=== PATIENT | female | born 1960 ===

== ENCOUNTER 2017-08-03 01:21 | Inpatient (IN) | payer BC ==
[2017-08-03] MEDS ORDERED: NS 0.9% 1000 ML*IV.FLUID IV ONE (01:51)
[2017-08-03] MEDS ORDERED: fentaNYL* 50 MCG/ML 2 ML VIAL (100 MCG VIAL) IV SLOW PU ONE (01:52)
[2017-08-03] MEDS ORDERED: Metoclopramide IV* 5 MG/ML 2 ML VIAL IV SLOW PU ONE (01:52)
[2017-08-03] MEDS ORDERED: Acetaminophen TAB* 325 MG PO ONE (01:53)
[2017-08-03] MEDS ORDERED: Levofloxacin 500 MG IVPREMIX(* 500 MG/100 ML BAG IVPB ONE (01:53)
[2017-08-03] MEDS ORDERED: Vancomycin(*) 1,000 MG in NS 0.9% 250 ML* 250 ML IVPB ONE (01:53)
[2017-08-03] MEDS ORDERED: NS 0.9% 1000 ML* 1,000 ML IV ONE (01:53)
[2017-08-03 02:18] LABS: ABS Basophils 0 10^3/ul (0-0.2); ABS Eosinophils 0 10^3/ul (0-0.6); ABS Lymphocytes 1.2 10^3/ul (1.0-4.8); ABS Monocytes 0.1 10^3/ul (0-0.8); ABS Nucleated RBC 0 10^3/ul; Eosinophil % 0 % (0-6); Hematocrit 34 % (35-47); Hemoglobin 11.5 g/dl (12.0-16.0); Lymphocyte % 9.2 % (25-47); Mean Corpuscular HGB Conc 34 g/dl (31-36); Mean Corpuscular Hemoglobin 32 pg (27-31); Mean Corpuscular Volume 93 fL (80-97); Mean Platelet Volume 7.5 um3 (7.4-10.4); Nucleated Red Blood Cells % 0; Platelet Count 271 10^3/ul (150-450); Red Blood Count 3.65 10^6/ul (4.0-5.4); Red Cell Distribution Width 13 % (10.5-15); White Blood Count 13.4 10^3/ul (3.5-10.8)
[2017-08-03 02:27] LABS: INR 1.04 (0.77-1.02)
[2017-08-03 02:37] LABS: EGFR Non-African American 35.1 (>60)
[2017-08-03 03:07] LABS: Urine Appearance Cloudy; Urine Blood 1+ (Negative); Urine Color Yellow; Urine Ketones Negative (Negative); Urine Protein 1+(30 mg/dL) (Negative); Urine Specific Gravity 1.025 (1.010-1.030); Urine Urobilinogen Negative (Negative)
[2017-08-03] MEDS ORDERED: Ondansetron ODT TAB* 4 MG PO ONE (03:20)
[2017-08-03] MEDS ORDERED: Ondansetron INJ* 2 MG/ML VIAL IV ONE (03:23)
[2017-08-03] MEDS ORDERED: Ondansetron INJ* 2 MG/ML VIAL ONE (03:25)
--- NOTE | 2017-08-03 03:30 | ED ---
Katleynn Jackson Thomas, scribed for Winter Sheriff MD on 08/03/17 at 0155 . Abdominal Pain/Female - HPI Summary HPI Summary: The patient is a 57 year old female who was diagnosed with a kidney stone yesterday and seen by Dr. Sheffield as well. She had a sonogram performed yesterday , that shows a stone on the left side close to the kidney. She is scheduled to have a stent placed this morning by Dr. Sheffield. Today, she comes in to the emergency department with worsening left flank pain, vomiting, and chills. - History of Current Complaint Chief Complaint: EDFlankPain Stated Complaint: FLANK PAIN Time Seen by Provider: 08/03/17 01:42 Hx Obtained From: Patient Onset/Duration: Lasting Hours, Still Present Timing: Constant Severity Currently: Severe Pain Intensity: 8 Pain Scale Used: 0-10 Numeric Location: Flank - left Alleviating Factor(s): Nothing Associated Signs and Symptoms: Positive: Vomiting, Other: - Chills Allergies/Adverse Reactions: Allergies Allergy/AdvReac Type Severity Reaction Status Date / Time codeine Allergy Unknown Verified 08/03/17 01:26 Reaction Details Home Medications: Home Medications NK [No Home Medications Reported] 08/03/17 [History Confirmed 08/03/17] PMH/Surg Hx/FS Hx/Imm Hx History: Reports: Hx Kidney Stones Opthamlomology History: Denies: Hx Legally Blind Infectious Disease History: No Infectious Disease History: Denies: Traveled Outside the [place] in Last 30 Days - Family History Known Family History: Negative: Seizure Disorder - Social History Alcohol Use: Occasionally Substance Use Type: Reports: None Smoking Status (MU): Current Some Day Smoker Review of Systems Positive: Fever, Chills Positive: Vomiting Positive: flank pain - left All Other Systems Reviewed And Are Negative: Yes Physical Exam - Summary Physical Exam Summary: VITAL SIGNS: Reviewed. GENERAL: Patient is a well-developed and nourished female who is lying comfortable in the stretcher. Patient is not in any acute respiratory distress. HEAD AND FACE: No signs of trauma. No ecchymosis, hematomas or skull depressions. No sinus tenderness. EYES: PERRLA, EOMI x 2, No injected conjunctiva, no nystagmus. EARS: Hearing grossly intact. Ear canals and tympanic membranes are within normal limits. MOUTH: Oropharynx within normal limits. NECK: Supple, trachea is midline, no adenopathy, no JVD, no carotid bruit, no c- spine tenderness, neck with full ROM. CHEST: Symmetric, no tenderness at palpation LUNGS: Clear to auscultation bilaterally. No wheezing or crackles. CVS: Regular rate and rhythm, S1 and S2 present, no murmurs or gallops appreciated. ABDOMEN: Soft, non-tender. No signs of distention. No rebound no guarding, and no masses palpated. Bowel sounds are normal. BACK: She has left CVA tenderness. EXTREMITIES: FROM in all major joints, no edema, no cyanosis or clubbing. NEURO: Alert and oriented x 3. No acute neurological deficits. Speech is normal and follows commands. SKIN: Dry and warm Triage Information Reviewed: Yes Vital Signs On Initial Exam: Initial Vitals Temp Pulse Resp BP Pulse Ox 99.7 F 117 22 112/70 92 08/03/17 01:23 08/03/17 01:23 08/03/17 01:23 08/03/17 01:23 08/03/17 01:23 Vital Signs Reviewed: Yes Diagnostics - Vital Signs Vital Signs Temp Pulse Resp BP Pulse Ox 08/03/17 01:23 99.7 F 117 22 112/70 92 - Laboratory Result Diagrams: 08/03/17 02:07 08/03/17 02:07 Lab Statement: Any lab studies that have been ordered have been reviewed, and results considered in the medical decision making process. Abdominal Pain Fem Course/Dx - Course Course Of Treatment: The patient is a 57 year old female who was diagnosed with a kidney stone yesterday. She is scheduled to have a stent placed this morning by Dr. Sheffield. Today, she comes in to the emergency department with worsening left flank pain, vomiting, and chills. In the ED course, the patient was given acetaminophen, fentanyl, Levaquin, Reglan, IV fluids, and vancomycin. Bloodwork and urinalysis were obtained. I reviewed the patients labs and vital signs with Dr. Sheffield. He recommends admission to the hospitalists, and he will do the surgery in the morning. The patient is admitted to Dr. Lua. ADDITIONAL DIAGNOSIS: Urosepsis. - Diagnoses Provider Diagnoses: Left ureteral stone, Obstructive uropathy - Provider Notifications Discussed Care Of Patient With: Hugh Sheffield Time Discussed With Above Provider: 03:19 Instructed by Provider To: Other - I discussed the case with Dr. Sheffield, urology. We reviewed the labs and vital signs. He recommends admission to the hospitalists. He will do the surgery as planned in the morning. Dr. Lua will admit the patient at 03:30. Discharge - Sign-Out/Discharge Documenting (check all that apply): Discharge/Admit/Transfer - Discharge Plan Condition: Fair Disposition: ADMITTED TO [facility] Referrals: No Primary Care Phys,NOPCP [Primary Care Provider] - The documentation as recorded by the Katelynn enriquez Thomas accurately reflects the service I personally performed and the decisions made by me, Winter Sheriff MD.
[2017-08-03] MEDS ORDERED: Ondansetron INJ* 2 MG/ML VIAL IV PRN (04:07)
[2017-08-03] MEDS ORDERED: PROCHLORPERAZINE INJ 5 MG/ML 2 ML VIAL IV PRN (04:07)
[2017-08-03] MEDS ORDERED: Morphine VIAL* 4 MG/ML VIAL (1 ml vial) IV PRN (04:10)
[2017-08-03] MEDS ORDERED: NS 0.9% 1000 ML* 1,000 ML IV SCH ×2 (04:15→13:31)
[2017-08-03] MEDS ORDERED: Gentamicin ADULT (*) 160 MG in NS 0.9% 100 ML* 100 ML IVPB ONE (10:00)
--- NOTE | 2017-08-03 10:52 | HP ---
CC: Eloisa Andrade NP; Dr. Sheffield * HISTORY AND PHYSICAL: DATE OF ADMISSION: 08/03/17 PRIMARY CARE PROVIDER: Eloisa Andrade NP CHIEF COMPLAINT: Left flank pain. HISTORY OF PRESENT ILLNESS: Ms. Latif is 57-year-old female, who at approximately 9:30 a.m. on 08/02/17 developed sudden onset of severe left flank pain. The patient went to [facility], where she was identified to have a left ureteral stone. The patient was referred to Dr. Sheffield's office. The patient saw Dr. Sheffield yesterday and was scheduled to have a left ureteral stent placed on the morning of 08/03/17. The patient received an IM injection of antibiotic at Dr. Sheffield's office. She is not 100% sure what it is, but questions maybe it is gentamicin. She was also prescribed Percocet and Cipro. The patient states she did not take the Cipro as she went right to bed after getting home. She did take 1 dose of the Percocet. The patient overnight developed fever and shaking chills. She continued to have intermittent episodes of nausea and vomiting. When the patient presented to the emergency room, she was found to have a fever of 101.8. The patient denies any gross blood in the urine and she denies dysuria. She has never had a kidney stone in the past. PAST MEDICAL HISTORY: None. PAST SURGICAL HISTORY: Right knee surgery at age of 14. MEDICATIONS: 1. Cipro (has not taken any). 2. Percocet 5/325 one tab p.o. q.6 hours p.r.n. pain. ALLERGIES: CODEINE, which causes loss of consciousness. FAMILY HISTORY: Mom at the age of 83 from bladder cancer. Dad at the age 75 of an [place]. SOCIAL HISTORY: The patient smokes on occasion. She drinks alcohol occasionally. She works in the [employer]. She is . She has 1 child. Her is her healthcare proxy. REVIEW OF SYSTEMS: A complete 11-system review of systems is obtained. Pertinent positives and negatives are as per HPI and in addition, she states her appetite has been poor over the last 24 hours. The rest of review of systems is negative. PHYSICAL EXAMINATION GENERAL: The patient is a well-developed, middle-aged female seen lying in stretcher, in no acute distress. VITAL SIGNS: Blood pressure 106/67; pulse 86; respirations 20; temp 99.9, T- max 101.3. HEENT: Pupils are equal and round. Extraocular muscles are intact. Oropharynx is clear. Oral mucosa is moist. The patient wears upper dentures. Has natural teeth on the bottom. NECK: There is no submandibular, cervical, or supraclavicular adenopathy. Thyroid is not enlarged. No thyroid nodules are noted. PULMONARY: Lungs are clear to auscultation bilaterally. CARDIAC: Normal S1 and S2. Regular rate and rhythm. I do not appreciate any murmur. There is no lower extremity edema. ABDOMEN: Bowel sounds are present. Abdomen is soft, nontender, nondistended. MUSCULOSKELETAL: There is no cyanosis or clubbing of the digits. There is full active range of motion of all 4 extremities. NEURO: Cranial nerves II through XII are grossly intact. Sensation is intact to light touch throughout. Strength is 5/5 and symmetric in both upper and lower extremities bilaterally. PSYCH: The patient is alert. She is oriented x3. Affect appears appropriate. SKIN: Warm and dry. There are no rashes. DIAGNOSTIC STUDIES/LAB DATA: WBC 13.4, hemoglobin 11.5, hematocrit 34, platelets 271. INR of 1.04. Sodium 140, potassium 3.9, chloride 104, CO2 of 25 , BUN 28, creatinine 1.53, glucose 122, lactic acid 2.3, calcium 8.8. Bilirubin 0.8, AST 19, ALT 17, alk phos 67. CRP 51.88. Albumin 4.0. Urinalysis reveals specific gravity of 1.025, 1+ protein, 1+ blood, 3+ leukocyte esterase, 3+ wbc's, 3+ rbc's, absent bacteria. ASSESSMENT AND PLAN: Ms. Latif is a 57-year-old female with no significant past medical history, who presents to the emergency room after developing fever and shaking chills at home on the evening after the identification of a left ureteral stone. 1. Sepsis secondary to probable pyelonephritis. The patient is septic based on sepsis 2 criteria with leukocytosis and fever. Her lactic acid is mildly elevated. The patient received 30 mL/kg bolus of saline. She has received Levaquin and vancomycin in the emergency room. I will continue the patient on ceftriaxone alone starting tomorrow morning. The patient will be taken later this morning to the OR with Dr. Sheffield to have a stent placed. I suspect the patient will need to stay in the hospital overnight to ensure that she remains stable once the stent is placed. 2. Left ureteral stone. The plan is for the patient to go to the OR this morning at approximately 9 a.m. If she decompensates in terms of her vital signs, Dr. Sheffield states he would take her sooner to the operating room. 3. Anemia. The patient is mildly anemic. We have no prior labs to compare to. We will need to follow this closely. 4. Elevated creatinine. The patient's creatinine is elevated at 1.53. We do not have any previous labs to compare to. I am suspicious that the elevated creatinine may be related to the obstruction caused by the left ureteral stone. We will follow the creatinine after hydration and stent placement. 5. DVT prophylaxis. According to the Adult Thrombosis Prophylaxis Risk Factor Assessment Guide, the patient has a total risk factor score of 1, making her low risk, SCDs will be utilized as DVT prophylaxis. 6. Code status is full. TIME SPENT: Fifty-five minutes was spent admitting this patient. [id number]/[facility] #: [id number] TORI
[2017-08-03] MEDS ORDERED: Naloxone* 0.4 MG/ML 1 ML VIAL IV PRN (12:14)
[2017-08-03] MEDS ORDERED: DiMENhydriNATE IV* 50 MG/ML VIAL IV PUSH PRN (12:14)
--- NOTE | 2017-08-03 12:41 | RAD ---
INDICATION: LEFT retrograde ureteral stent placement. COMPARISON: No prior exams available on the [facility] for comparison. TECHNIQUE: 10 seconds fluoroscopy. FINDINGS: Retrograde pyelogram documents mild calyceal blunting. LEFT ureteral stent placed with decompression of the collecting system. IMPRESSION: Procedural fluoroscopy. CPT II Codes: G9500
[2017-08-03] MEDS: fentaNYL* 50 MCG/ML 2 ML VIAL (100 MCG VIAL) IV PRN ×3 (13:01→13:32)
--- NOTE | 2017-08-03 14:08 | PN ---
Subjective Date of Service: 08/03/17 Interval History: Patient had significant nausea and flank pain this AM with subjective fevers and chills. Patient denied SOB, Dizziness, CP, Diarrhea, palpitations, or other pain. Patient seen postoperatively. Patient states the character of her abdominal pain has changed and it is now lower in her abdomen. Patient states her nausea has resolved. Family History: Unchanged from Admission Social History: Unchanged from Admission Past Medical History: Unchanged from Admission Objective Active Medications: Dimenhydrinate (Dramamine Iv*) 25 mg IV PUSH ONCE PRN PRN Reason: NAUSEA/VOMITING Stop: 08/03/17 16:00 Fentanyl Citrate (Fentanyl*) 50 mcg IV Q5M PRN PRN Reason: PAIN - MODERATE Stop: 08/03/17 16:00 Last Admin: 08/03/17 13:32 Dose: 50 mcg Ceftriaxone Sodium 1 gm/ (Sodium Chloride) 50 mls @ 200 mls/hr IVPB Q24H EDWARD Sodium Chloride (Ns 0.9% 1000 Ml*) 1,000 mls @ 175 mls/hr IV PER RATE EDWARD Morphine Sulfate (Morphine Vial*) 4 mg IV Q4H PRN PRN Reason: PAIN - MILD Naloxone HCl (Narcan*) 0.08 mg IV Q2M PRN PRN Reason: severe induced resp depression Stop: 08/04/17 12:13 Ondansetron HCl (Zofran Inj*) 4 mg IV Q6H PRN PRN Reason: NAUSEA Prochlorperazine Edisylate (Compazine Inj*) 10 mg IV Q6H PRN PRN Reason: NAUSEA/VOMITING Vital Signs - 8 hr 08/03/17 08/03/17 08/03/17 07:49 12:10 12:16 Temperature 98.9 F 100.8 F Pulse Rate 87 109 106 Respiratory 16 18 29 Rate Blood Pressure 98/46 135/74 135/68 (mmHg) O2 Sat by Pulse 100 92 89 Oximetry 08/03/17 08/03/17 08/03/17 12:21 12:26 12:41 Temperature Pulse Rate 115 112 101 Respiratory 22 28 28 Rate Blood Pressure 101/55 109/89 126/67 (mmHg) O2 Sat by Pulse 97 100 93 Oximetry 08/03/17 08/03/17 08/03/17 12:45 12:50 12:57 Temperature 103.3 F Pulse Rate 93 99 Respiratory 22 20 Rate Blood Pressure 118/62 103/67 (mmHg) O2 Sat by Pulse 98 96 Oximetry 08/03/17 08/03/17 08/03/17 13:00 13:01 13:05 Temperature 101.3 F Pulse Rate 96 93 Respiratory 25 20 23 Rate Blood Pressure 90/61 111/63 (mmHg) O2 Sat by Pulse 96 96 Oximetry 08/03/17 08/03/17 08/03/17 13:10 13:15 13:16 Temperature 103.5 F Pulse Rate 93 92 Respiratory 21 27 20 Rate Blood Pressure 107/67 111/65 (mmHg) O2 Sat by Pulse 96 96 Oximetry 08/03/17 08/03/17 08/03/17 13:30 13:32 13:34 Temperature 101.7 F Pulse Rate 89 89 Respiratory 16 18 22 Rate Blood Pressure 89/67 106/62 (mmHg) O2 Sat by Pulse 96 95 Oximetry Oxygen Devices in Use Now: Nasal Cannula - 2L Appearance: Patient is a 57yo female who appears stated age and is sitting in the bed in NAD. Eyes: No Scleral Icterus, PERRLA Ears/Nose/Mouth/Throat: NL Teeth, Lips, Gums, Clear Oropharnyx, Mucous Membranes Moist Neck: NL Appearance and Movements; NL JVP, Trachea Midline Respiratory: Symmetrical Chest Expansion and Respiratory Effort, Clear to Auscultation Cardiovascular: NL Sounds; No Murmurs; No JVD, RRR, No Edema Abdominal: No Hepatosplenomegaly, - - CVA tenderness on L side. Tender to palpation in suprapubic area. Normal bowel sounds. Lymphatic: No Cervical Adenopathy Extremities: No Edema, No Clubbing, Cyanosis Skin: No Rash or Ulcers, No Nodules or Sclerosis Neurological: Alert and Oriented x 3, NL Sensation, NL Muscle Strength and Tone , - - CN II-XII intact Result Diagrams: 08/03/17 02:07 08/03/17 02:07 Assess/Plan/Problems-Billing Assessment: Patient is a 57yo female with no PMH who is admitted with pyelonephritis and nephrolithiasis who is S/P stent insertion. - Patient Problems (1) Sepsis Current Visit: Yes Status: Acute Comment: Patient met sepsis criteria on admission with elevated temp, lactic acid, leukocytosis and probable pyelonephritis. Patient is being given agressive fluids and has been given vancomycin, Gentamycin and Ceftriaxone to this point. (2) Pyelonephritis Current Visit: Yes Status: Acute Code(s): N12 - TUBULO-INTERSTITIAL NEPHRITIS, NOT SPCF ACUTE OR CHRONIC SNOMED Code(s): 06007789 Comment: Appreciate Urology input. Associated with nephrolitiasis. Grossly positive UA and purulence behind stone when stent placed. Culture from yesterday grew E. coli. Continue ceftriaxone and await culture. (3) Nephrolithiasis Current Visit: Yes Status: Acute Code(s): N20.0 - CALCULUS OF KIDNEY SNOMED Code(s): 52668579 Comment: Appreciate Urology input. S/P Stenting with plan for lithotripsy. No history of kidney stones. (4) DVT prophylaxis Current Visit: Yes Status: Acute Code(s): YHB3728 - SNOMED Code(s): 418688249 Comment: SCDs (5) Full code status Current Visit: Yes Status: Acute Code(s): Z78.9 - OTHER SPECIFIED HEALTH STATUS SNOMED Code(s): 038690703 Status and Disposition: Inpatient.
--- NOTE | 2017-08-03 15:42 | RAD ---
HISTORY: Status post left stent insertion COMPARISONS: None VIEWS: Frontal views of the abdomen. FINDINGS: BOWEL: There is a nonspecific bowel gas pattern, with nondilated small bowel gas noted. CALCULI: There are no abnormal calculi. A left ureteral stent is noted. BONES AND SOFT TISSUES: There are no osseous abnormalities. OTHER FINDINGS: The lung bases are clear. There is no subphrenic gas. IMPRESSION: LEFT URETERAL STENT
[2017-08-04] MEDS: cefTRIAXone(*) 1 GM in NS 0.9% 50 ML* 50 ML IVPB SCH (03:36)
[2017-08-04 05:48] LABS: Hematocrit 29 % (35-47); Mean Corpuscular HGB Conc 35 g/dl (31-36); Mean Corpuscular Hemoglobin 33 pg (27-31); Mean Corpuscular Volume 93 fL (80-97); Mean Platelet Volume 7.6 um3 (7.4-10.4); Platelet Count 190 10^3/ul (150-450); Red Blood Count 3.06 10^6/ul (4.0-5.4); Red Cell Distribution Width 13 % (10.5-15); White Blood Count 20.7 10^3/ul (3.5-10.8)
[2017-08-04 06:03] LABS: EGFR Non-African American 49.8 (>60)
[2017-08-04] MEDS ORDERED: Simethicone LIQ* 40 MG/0.6 ML UD ORAL SYRINGE PO PRN (08:48)
--- NOTE | 2017-08-04 09:46 | OP ---
DATE OF OPERATION: 08/03/17 - ROOM #351 DATE OF : 62 SURGEON: Hugh Sheffield MD. ANESTHESIOLOGIST: Dr. Gallo. ANESTHESIA: General. PRE-OP DIAGNOSES: 1. Left hydronephrosis. 2. Calculus, left proximal ureter. 3. Urinary tract infection. POST-OP DIAGNOSES: 1. Left hydronephrosis. 2. Calculus, left proximal ureter. 3. Urinary tract infection. OPERATIVE PROCEDURE: Cystoscopy, left retrograde pyelogram, left ureteral calculus manipulation, and left stent insertion. COMPLICATIONS: None. STENT USED: A 7-Malian stent, left ureter. POSTOPERATIVE CONDITION: Stable. OPERATIVE FINDINGS: High-grade obstruction left ureter with purulent urine draining from left kidney. INDICATIONS: Mary Latif is a 57-year-old lady who is referred by [facility] for left flank pain. She required admission during the night because of increasing pain and fever and is now being brought in for urgent left stent insertion to be followed at some point in the near future by lithotripsy. DESCRIPTION OF PROCEDURE: After induction of general anesthesia, the patient was placed in dorsal lithotomy position. Sequential compression devices were in place and functioning. Initial cystoscopy revealed normal-appearing bladder with some cloudy debris noted within the bladder. A guidewire was introduced into the left ureter limited retrograde pyelogram revealed fullness of the left collecting system. The calculus had been located at the ureteropelvic junction and an open-ended catheter was introduced to manipulate it carefully into the kidney. Urine was obtained from the left kidney and sent for culture. A 7-Malian hydrophilic stent was introduced and advanced over a guidewire under fluoroscopic guidance with good proximal and distal positioning obtained. The bladder was emptied. The patient tolerated the procedure satisfactorily and was transferred back to the recovery area in stable condition. [id number]/[facility] #: [id number] [facility]
--- NOTE | 2017-08-04 12:28 | PN ---
Subjective Date of Service: 08/04/17 Interval History: Patient complains of abdominal bloating and distention which has improved from yesterday, no more pain consistent with kidney stone. Patient has had no fevers , denies N/V, CP, SOB, dizziness, diarrhea, dysuria, hematuria, or other pain. Family History: Unchanged from Admission Social History: Unchanged from Admission Past Medical History: Unchanged from Admission Objective Active Medications: Ceftriaxone Sodium 1 gm/ (Sodium Chloride) 50 mls @ 200 mls/hr IVPB Q24H EDWARD Last Admin: 08/04/17 03:36 Dose: 200 mls/hr Lactated Ringer's (Lactated Ringers 1000 Ml Bag*) 1,000 mls @ 100 mls/hr IV PER RATE EDWARD Morphine Sulfate (Morphine Vial*) 4 mg IV Q4H PRN PRN Reason: PAIN - MILD Last Admin: 08/03/17 14:57 Dose: 4 mg Ondansetron HCl (Zofran Inj*) 4 mg IV Q6H PRN PRN Reason: NAUSEA Prochlorperazine Edisylate (Compazine Inj*) 10 mg IV Q6H PRN PRN Reason: NAUSEA/VOMITING Simethicone (Mylicon Liq*) 40 mg PO BID PRN PRN Reason: INDIGESTION Oxygen Devices in Use Now: None Appearance: Patient is a 57yo female who appears stated age and is sitting in the bed in [facility]. Eyes: No Scleral Icterus, PERRLA Ears/Nose/Mouth/Throat: NL Teeth, Lips, Gums, Clear Oropharnyx, Mucous Membranes Moist Neck: NL Appearance and Movements; NL JVP, Trachea Midline Respiratory: Symmetrical Chest Expansion and Respiratory Effort, Clear to Auscultation Cardiovascular: NL Sounds; No Murmurs; No JVD, RRR, No Edema Abdominal: No Hepatosplenomegaly, - - Slightly distended and tympanic to percussion, normoactive bowel sounds. Lymphatic: No Cervical Adenopathy Extremities: No Edema, No Clubbing, Cyanosis Skin: No Rash or Ulcers, No Nodules or Sclerosis Neurological: Alert and Oriented x 3, NL Sensation, NL Muscle Strength and Tone , - - CN II-XII intact. Result Diagrams: 08/04/17 05:39 08/04/17 05:39 Assess/Plan/Problems-Billing Assessment: Patient is a 57yo female with no PMH who is admitted with pyelonephritis and nephrolithiasis who is S/P stent insertion. - Patient Problems (1) Sepsis Current Visit: Yes Status: Acute Comment: Patient met sepsis criteria on admission with elevated temp, lactic acid, leukocytosis and probable pyelonephritis. Patient is being given agressive fluids and has been given vancomycin, Gentamycin and Ceftriaxone to this point. Caused by pansensitive E. coli from urine culture. Gram negative bacilli in BC. Continue ceftriaxone. (2) Pyelonephritis Current Visit: Yes Status: Acute Code(s): N12 - TUBULO-INTERSTITIAL NEPHRITIS, NOT SPCF ACUTE OR CHRONIC SNOMED Code(s): 38606055 Comment: Appreciate Urology input. Associated with nephrolitiasis. Grossly positive UA and purulence behind stone when stent placed. Culture from yesterday grew E. coli. Continue ceftriaxone for pansensitive E. coli With associated bacteremia, continue IV antibiotics until 48hrs fever free. (3) Nephrolithiasis Current Visit: Yes Status: Acute Code(s): N20.0 - CALCULUS OF KIDNEY SNOMED Code(s): 74961672 Comment: Appreciate Urology input. S/P Stenting with plan for lithotripsy. No history of kidney stones. (4) DVT prophylaxis Current Visit: Yes Status: Acute Code(s): XKG5537 - SNOMED Code(s): 804430766 Comment: SCDs (5) Full code status Current Visit: Yes Status: Acute Code(s): Z78.9 - OTHER SPECIFIED HEALTH STATUS SNOMED Code(s): 716781901 Status and Disposition: Inpatient.
[2017-08-04] MEDS: Acetaminophen TAB* 325 MG PO PRN (18:36)
[2017-08-05] MEDS: Acetaminophen TAB* 325 MG PO PRN ×2 (02:23→14:30)
[2017-08-05] MEDS: cefTRIAXone(*) 1 GM in NS 0.9% 50 ML* 50 ML IVPB SCH (02:29)
[2017-08-05 06:30] LABS: ABS Basophils 0.1 10^3/ul (0-0.2); ABS Eosinophils 0 10^3/ul (0-0.6); ABS Lymphocytes 3.2 10^3/ul (1.0-4.8); ABS Monocytes 0.9 10^3/ul (0-0.8); ABS Neutrophils 10.1 10^3/ul (1.5-7.7); ABS Nucleated RBC 0 10^3/ul; Eosinophil % 0.2 % (0-6); Hematocrit 30 % (35-47); Hemoglobin 10.4 g/dl (12.0-16.0); Lymphocyte % 22.1 % (25-47); Mean Corpuscular HGB Conc 35 g/dl (31-36); Mean Corpuscular Hemoglobin 33 pg (27-31); Mean Corpuscular Volume 93 fL (80-97); Mean Platelet Volume 8.2 um3 (7.4-10.4); Nucleated Red Blood Cells % 0; Platelet Count 209 10^3/ul (150-450); Red Blood Count 3.16 10^6/ul (4.0-5.4); Red Cell Distribution Width 13 % (10.5-15); White Blood Count 14.3 10^3/ul (3.5-10.8)
[2017-08-05 06:48] LABS: EGFR Non-African American 51.9 (>60)
[2017-08-05] MEDS ORDERED: oxyCODONE TAB* 5 MG TAB PO PRN (09:13)
[2017-08-05] MEDS: Lactobacillus Acidophilus* 1 TAB PO SCH (11:39)
--- NOTE | 2017-08-05 12:57 | PN ---
Subjective Date of Service: 08/05/17 Interval History: Patient had a symptomatic fever of 101.1 yesterday evening. Patient has persistent dysuria and hematuria. Patient otherwise has some diminishing bloating in her abdomen. Patient is having frequent loose bowel movements without blood or black material. Patient denies recent F/C, N/V, Cp, SOB, or other pain. Family History: Unchanged from Admission Social History: Unchanged from Admission Past Medical History: Unchanged from Admission Objective Active Medications: Acetaminophen (Tylenol Tab*) 650 mg PO Q6H PRN PRN Reason: PAIN Last Admin: 08/05/17 02:23 Dose: 650 mg Ceftriaxone Sodium 1 gm/ (Sodium Chloride) 50 mls @ 200 mls/hr IVPB Q24H EDWARD Last Admin: 08/05/17 02:29 Dose: 200 mls/hr Lactobacillus Rhamnosus (Lactobacillus Acidophilus*) 1 tab PO DAILY [facility] Last Admin: 08/05/17 11:39 Dose: 1 tab Ondansetron HCl (Zofran Inj*) 4 mg IV Q6H PRN PRN Reason: NAUSEA Oxycodone HCl (Roxycodone Tab*) 5 mg PO Q6H PRN PRN Reason: PAIN - SEVERE Prochlorperazine Edisylate (Compazine Inj*) 10 mg IV Q6H PRN PRN Reason: NAUSEA/VOMITING Simethicone (Mylicon Liq*) 40 mg PO BID PRN PRN Reason: INDIGESTION Vital Signs - 8 hr 08/05/17 08/05/17 04:51 07:33 Temperature 98.8 F 98.8 F Pulse Rate 76 75 Respiratory 28 16 Rate Blood Pressure 111/52 107/92 (mmHg) O2 Sat by Pulse 93 96 Oximetry Oxygen Devices in Use Now: None Appearance: Patient is a 57yo female who appears stated age and is sitting in the bed in [facility]. Eyes: No Scleral Icterus, PERRLA Ears/Nose/Mouth/Throat: NL Teeth, Lips, Gums, Clear Oropharnyx, Mucous Membranes Moist Neck: NL Appearance and Movements; NL JVP, Trachea Midline Respiratory: Symmetrical Chest Expansion and Respiratory Effort, Clear to Auscultation Cardiovascular: NL Sounds; No Murmurs; No JVD, RRR, No Edema Abdominal: NL Sounds; No Tenderness; No Distention, - - Slightly distended, tender to palpation only in RLQ. Lymphatic: No Cervical Adenopathy Extremities: No Edema, No Clubbing, Cyanosis Skin: No Rash or Ulcers, No Nodules or Sclerosis Neurological: Alert and Oriented x 3, NL Sensation, NL Muscle Strength and Tone Result Diagrams: 08/05/17 06:16 08/05/17 06:16 Assess/Plan/Problems-Billing Assessment: Patient is a 57yo female with no PMH who is admitted with pyelonephritis and nephrolithiasis who is S/P stent insertion. - Patient Problems (1) Sepsis Current Visit: Yes Status: Acute Comment: Patient met sepsis criteria on admission with elevated temp, lactic acid, leukocytosis and probable pyelonephritis. Patient is being given agressive fluids and has been given vancomycin, Gentamycin and Ceftriaxone to this point. Caused by pansensitive E. coli from urine culture which also grew on blood culture. Resolved, continue ceftriaxone. (2) Pyelonephritis Current Visit: Yes Status: Acute Code(s): N12 - TUBULO-INTERSTITIAL NEPHRITIS, NOT SPCF ACUTE OR CHRONIC SNOMED Code(s): 01177973 Comment: Appreciate Urology input. Associated with nephrolitiasis. Grossly positive UA and purulence behind stone when stent placed. Culture grew E. coli. Continue ceftriaxone for pansensitive E. coli With associated bacteremia, continue IV antibiotics until 48hrs fever free. Last fever in the evening of 08/04. (3) Nephrolithiasis Current Visit: Yes Status: Acute Code(s): N20.0 - CALCULUS OF KIDNEY SNOMED Code(s): 87794975 Comment: Appreciate Urology input. S/P Stenting with plan for lithotripsy. No history of kidney stones. (4) DVT prophylaxis Current Visit: Yes Status: Acute Code(s): AKN1604 - SNOMED Code(s): 494696263 Comment: SCDs (5) Full code status Current Visit: Yes Status: Acute Code(s): Z78.9 - OTHER SPECIFIED HEALTH STATUS SNOMED Code(s): 786392465 Status and Disposition: Inpatient. Hopeful discharge tomorrow.
[2017-08-05] MEDS: Loperamide CAP* 2 MG PO SCH (21:19)
[2017-08-06] MEDS: Acetaminophen TAB* 325 MG PO PRN (01:25)
[2017-08-06] MEDS: cefTRIAXone(*) 1 GM in NS 0.9% 50 ML* 50 ML IVPB SCH (03:25)
[2017-08-06 05:26] LABS: ABS Basophils 0.1 10^3/ul (0-0.2); ABS Eosinophils 0.1 10^3/ul (0-0.6); ABS Lymphocytes 3.8 10^3/ul (1.0-4.8); ABS Monocytes 0.8 10^3/ul (0-0.8); ABS Nucleated RBC 0 10^3/ul; Eosinophil % 0.6 % (0-6); Hematocrit 31 % (35-47); Hemoglobin 10.7 g/dl (12.0-16.0); Lymphocyte % 43.6 % (25-47); Mean Corpuscular HGB Conc 35 g/dl (31-36); Mean Corpuscular Hemoglobin 32 pg (27-31); Mean Corpuscular Volume 93 fL (80-97); Nucleated Red Blood Cells % 0.1; Platelet Count 213 10^3/ul (150-450); Red Blood Count 3.31 10^6/ul (4.0-5.4); Red Cell Distribution Width 13 % (10.5-15); White Blood Count 8.6 10^3/ul (3.5-10.8)
[2017-08-06 05:36] LABS: EGFR Non-African American 63.9 (>60)
[2017-08-06] MEDS: Lactobacillus Acidophilus* 1 TAB PO SCH (08:02)
[2017-08-06] MEDS: Loperamide CAP* 2 MG PO SCH (08:03)
[2017-08-06 10:55] VITALS: BP 124/69
--- NOTE | 2017-08-07 12:53 | DS ---
AMENDED REPORT TO CORRECT ATTENDING PROVIDER CC: Eloisa Andrade NP; Dr. Hugh Sheffield * DISCHARGE SUMMARY: DATE OF ADMISSION: 08/03/17 DATE OF DISCHARGE: 08/06/17 PRIMARY CARE PROVIDER: Eloisa Andrade NP CONSULTING UROLOGIST: Dr. Hugh Sheffield. ATTENDING PROVIDER: Delphine Lane MD * (DICTATED BY EDMUNDO HOLLY) PRIMARY DISCHARGE DIAGNOSES: 1. Pyelonephritis with sepsis, resolved. 2. Left ureteral stone status post stenting. 3. Acute kidney injury. SECONDARY DISCHARGE DIAGNOSES: None. STUDIES DONE WHILE IN THE HOSPITAL: Abdomen x-ray from 08/03/17 read as left ureteral stent. MEDICATIONS AT DISCHARGE: 1. Tylenol 650 mg p.o. q. 6 hours as needed for pain. 2. Cefpodoxime 200 mg p.o. q. 12 hours x15 doses. HOSPITAL COURSE: This is a brief summary of the patient's presentation. For more details, please see the history and physical from Dr. Antoinette Lua on 05/22. In brief, the patient is a 57-year-old female with no significant past medical history, who presents to the emergency room with flank pain of sudden onset and severity at 9:30 a.m. on 08/02/17. The patient went to [facility], was referred to Dr. Sheffield's office and was scheduled for outpatient stent placement, however, and was given antibiotics, given gentamicin, Percocet and Cipro. The patient developed fever and shaking chills, nausea and vomiting, presented to the emergency room, found to have a fever of 101.8. The patient was admitted to the hospital for sepsis with leukocytosis, lactic acidosis, tachycardia. The patient was given levofloxacin, gentamicin, and ceftriaxone. The patient was taken to the OR and had a stent placed in her left ureter, which had a large amount of purulent drainage behind it. The patient in the postoperative area had a fever up to 101.3 degrees Fahrenheit. The patient's blood pressure was responsive to fluids and stayed within normal range. The patient was also tachycardic in the postoperative area. The patient was transferred back to the floor. The patient was continued on ceftriaxone and continued with fluids. The patient's vital signs stayed stable. The patient had a temperature of 100.1 in the evening of 08/04/17. The patient had otherwise no issues. The patient's urine was light pink with no dysuria. The patient had bloating and diarrhea, which resolved by itself without intervention. The patient felt stable for discharge on 08/06/17. The patient was admitted with a mild leukocytosis, which elevated to a white blood cell count of 20.7 and then declined to 8.6 on her day of discharge. The patient also had elevated creatinine of 1.53 on admission, which declined to 0.91 at discharge. The patient had an elevated lactic acid, which was rechecked and was normal on recheck. The patient was also slightly anemic at 11.5 on admission. It stayed approximately stable at 10.7. The patient was stable and amenable for discharge home on 08/06/[address] Sheffield for lithotripsy at a later day. PHYSICAL EXAM ON THE DAY OF DISCHARGE: General: The patient is a 57-year-old female, who appears stated age and sitting comfortably in bed, in no acute distress. HEENT: Head normocephalic, atraumatic. Sclerae anicteric. No conjunctival injection. Nasal mucosa moist. Oral mucosa moist. No pharyngeal erythema, discharge or exudate. Neck: Supple, nontender. No lymphadenopathy. No carotid bruit auscultated. No JVD. Cardiac: Regular rate and rhythm. No clicks, murmurs, gallops or rubs. Pulses are 2+ in the bilateral dorsalis pedis, posterior tibialis and radial areas. No lower extremity edema noted. No calf tenderness. Respiratory: Clear to auscultation bilaterally. No wheezes , rales or rhonchi. Good air exchange bilaterally. Skin: Clean, dry, and intact. No rashes. Abdomen: Soft, nontender, nondistended. Bowel sounds present and normoactive in all 4 quadrants. No hepatosplenomegaly. No abdominal bruits auscultated. Genitourinary: No suprapubic or CVA tenderness. Neuro: Cranial nerves II through XII intact. Normal gait. No focal deficits. Alert and oriented x3. Psychiatric: Pleasant and cooperative. LABORATORY DATA ON DAY OF DISCHARGE: White blood cell count 8.6, hemoglobin 10.7, platelet count 213. Sodium 140, potassium 3.5, chloride 106, carbon dioxide 24, anion gap 10, BUN 8, creatinine 0.91, glucose 130, calcium 8.6. Urine showed 1+ protein, 1+ blood, 3+ leukocyte esterase, 3+ white blood cells, 3+ red blood cells, and urine squamous epithelial cells. DISCHARGE PLAN: The patient will be discharged to home on 7 more days of cefpodoxime to complete a 10-day course of beta-lactam antibiotics for her urinary tract infection, pyelonephritis, and bacteremia with posada sensitive E. coli. The patient will follow up with her urologist, Dr. Sheffield as scheduled. His appointment has already been set up and the patient will have lithotripsy later in the month. The patient should engage in activity as tolerated and have a regular unrestricted diet, and return to hospital for alarming symptoms such as recurrent abdominal pain, high fevers, unresponsive to medication, chest pain , shortness of breath. TIME SPENT: Approximately 60 minutes was spent on the discharge, 30 of which was spent [id number] with the patient, obtaining history and physical and discussing treatment plan. EDMUNDO HOLLY [id number]/CPS #: [id number] TORI
== END 2017-08-06 11:20 | disposition home or self-care (01) | DRG 720 ==
LOC: ED 01:21 → SSU 04:07 → OBSVTOIN 08-04 09:45
PROVIDERS: ADMIT Hospitalist; ATTEND Emergency Medicine
PROC: BT1FZZZ Fluoroscopy of Left Kidney, Ureter and Bladder (ICD-10-PCS; 2017-08-03)
PROC: 0T778DZ Dilation of Left Ureter with Intraluminal Device, Via Natural or Artificial Opening Endoscopic (ICD-10-PCS; principal; 2017-08-03 11:00)
DX: A41.51 Sepsis due to Escherichia coli [E. coli] (principal); N17.9 Acute kidney failure, unspecified; N13.6 Pyonephrosis; N39.0 Urinary tract infection, site not specified; N20.1 Calculus of ureter; F17.210 Nicotine dependence, cigarettes, uncomplicated; D64.9 Anemia, unspecified; R74.8 Abnormal levels of other serum enzymes; R31.9 Hematuria, unspecified; B96.20 Unspecified Escherichia coli [E. coli] as the cause of diseases classified elsewhere; R19.7 Diarrhea, unspecified; R14.0 Abdominal distension (gaseous); Z88.5 Allergy status to narcotic agent; Z82.49 Family history of ischemic heart disease and other diseases of the circulatory system; Z72.89 Other problems related to lifestyle; Z80.52 Family history of malignant neoplasm of bladder
CPT/HCPCS: 36415; 74018; 74420; 80048; 80053; 81003; 81015; 83605; 85025; 85027; 85610; 85730; 86140; 87040; 87077; 87086; 87186; 87205; 99284; A9270-GY; C1876; G0378; J0696; J1580; J1956; J2270; J2405; J2765; J3010; J3370

== ENCOUNTER 2017-08-22 08:58 | Day surgery (SDC) | payer BC ==
[~2017-08-22 08:58] MED LIST: Buffered Lidocaine 0.9% SYRIN* 5 ML/SYR SYRINGE INTRADERM ONE; Sodium Citrate/Citric Acid* 15 ML UDC PO ONE
[2017-08-22] MEDS ORDERED: cefTRIAXone(*) 1 GM ADVAN/BAG ONE (10:05)
[2017-08-22] MEDS ORDERED: Sodium Citrate/Citric Acid* 15 ML UDC ONE (10:15)
[2017-08-22] MEDS ORDERED: Buffered Lidocaine 0.9% SYRIN* 5 ML/SYR SYRINGE ONE (10:15)
--- NOTE | 2017-08-22 10:51 | RAD ---
HISTORY: Shock wave lithotripsy COMPARISONS: August 09, 2017 VIEWS: Frontal views of the abdomen. FINDINGS: BOWEL: There is a nonspecific bowel gas pattern, with nondilated small bowel gas noted. There is a large amount of stool within the colon. CALCULI: A left ureteral stent is noted. There is a 0.5 cm calculus overlying the left renal parenchymal shadow. BONES AND SOFT TISSUES: There are no osseous abnormalities. OTHER FINDINGS: The lung bases are clear. There is no subphrenic gas. IMPRESSION: LEFT NEPHROLITHIASIS WITH A LEFT URETERAL STENT
[2017-08-22] MEDS ORDERED: Midazolam* 1 MG/ML 5 ML VIAL (5 MG) ONE (12:38)
[2017-08-22] MEDS ORDERED: fentaNYL* 50 MCG/ML 2 ML VIAL (100 MCG VIAL) ONE (12:38)
[2017-08-22] MEDS ORDERED: Naloxone* 0.4 MG/ML 1 ML VIAL IV PRN (12:51)
[2017-08-22 14:10] VITALS: BP 114/81
--- NOTE | 2017-08-23 11:40 | OP ---
CC: Eloisa Andrade NP * DATE OF OPERATION: 08/22/17 - [facility] DATE OF : 62 SURGEON: Hugh Sheffield M.D. ANESTHESIOLOGIST: Dr. Pedraza. ANESTHESIA: Intravenous sedation. PRE-OP DIAGNOSIS: Left renal calculus. POST-OP DIAGNOSIS: Left renal calculus. OPERATIVE PROCEDURE: Shockwave lithotripsy of left renal calculus. COMPLICATIONS: None. POSTOPERATIVE CONDITION: Stable. INDICATIONS: Mary Latif is a 57-year-old lady who had undergone urgent left stent insertion for an obstructing calculus in the left proximal ureter. The stone was manipulated up into the kidney and she is now being brought in for lithotripsy procedure. DESCRIPTION OF PROCEDURE: After induction of intravenous sedation, the patient was placed on lithotomy table in supine position. The calculus, which was adjacent to the proximal tip of the stent was localized using fluoroscopy. Shockwave lithotripsy was commenced at a rate of 60 shocks per minute. After the initial 300 shocks, there was a pause in lithotripsy for several minutes in an effort to minimize any potential trauma to the kidney. Lithotripsy was then resumed and a total of 1200 shocks were administered with good fragmentation observed. The patient tolerated the procedure satisfactorily and was transferred back to recovery area in stable condition. [id number]/[facility] #: [id number] [facility] CAMPUSLakshmi
== END 2017-08-22 14:55 | disposition home or self-care (01) ==
LOC: OR 08:58
PROVIDERS: ATTEND Urology
DX: N20.0 Calculus of kidney (principal); Z87.891 Personal history of nicotine dependence
CPT/HCPCS: 74018; A9270-GY; J0696; J2250; J3010